=== PATIENT | male | born 1950 | race Caucasian/White ===

== ENCOUNTER → 2017-09-25 | Outpatient (CLI) | payer OTHER ==
[~2017-09-25] MED LIST: ABILIFY10 MG PO; ABILIFY15 MG PO; AMBIEN10 MG PO; ASPIR-LOW81 MG PO; BUSPAR10 MG PO; CYMBALTA30 MG PO; CYMBALTA60 MG PO; Celexa PO; Cymbalta PO; DESYREL 150 MG150 MG PO; LEVAQUIN750 MG PO; LOTRIMIN AF24 GM TP; LUNESTA PO; LUNESTA1 MG PO; Motrin PO; OMEPRAZOLE40 M1 PO; PERCOCET 5/31 TABLET PO; PROAIR HFA8.5 GM IH; REMERON15 M2 PO; REMERON45 MG PO; Remeron PO; TOPROL XL100 MG PO; VENTOLIN HFA18 GM IH; ZESTRIL20 MG PO; lexapro; lunesta; zyprexa
== END | disposition home or self-care (01) ==
LOC: EKG 09-18 14:00 → NUC 09:13
DX: I51.7 Cardiomegaly (principal); I05.1 Rheumatic mitral insufficiency; I07.1 Rheumatic tricuspid insufficiency
CPT/HCPCS: 78452; 78999; 93306; A9500; J2785